=== PATIENT | male | born 1980 | race Caucasian/White ===

== ENCOUNTER 2020-08-07 21:49 | Emergency (ER) | payer MEDICAID, SELFPAY ==
[2020-08-07 21:58] VITALS: BP 155/60; PULSE 106; RESP 16; TEMP 36.7; O2SAT 99
--- NOTE | 2020-08-07 22:27 | ED.GENADUL_ITS ---
Discharge Plan Disposition Patient Disposition: HOME Condition: Improving Discharge Details Clinical Impression: Abscess of arm, right Primary Care Provider: Margi,[facility] ED Provider: Simón Santana Home Meds and New Rx's Prescriptions: New amoxicillin-pot clavulanate 875-125 mg tablet 1 tab PO BID 10 Days Qty: 20 RF: 0 Discharge Instructions Instructions: Abscess (ED) Additional Instructions: Leave current dressing in place until you return for recheck in 24 to 30 hours. Take antibiotics as prescribed. You were seen by a community voice coach in the ER. Return sooner if you develop shaking chills, fever or any other acute concerns Medical Decision Making 40-year-old male who does report use of IV drugs including fentanyl. Feels like he missed the vein 3 days ago and developed right AC fossa swelling, pain and subsequent purulent drainage when he incised at home. Presents had concern for infection. Had no systemic fever or chills and has otherwise been well. States he is ready to attempt weaning off of narcotics. He is afebrile, slightly hypertensive and anxious. He has induration and abscess of the right AC fossa. Patient was consented as to the risks and benefits of the procedure, anesthetized, prepped and draped in standard sterile fashion, and approximately 3 cm incision made vertically over the area of pointing fluctuance. 2 to 3 cc of bloody purulent material was released. Wound culture was sent. Iodoform packing was placed. Patient was placed on Augmentin. He will return in 24 to 30 hours for recheck. He was seen by voice coach prior to discharge HPI General Mode of arrival: ambulatory . Date/Time Provider Initiated Documentation: 08/07/20 21:51 . Limitations to Documentation: no limitations . Information obtained by: patient . History of Present Illness 40 year old M presents to the emergency department with the chief complaint of Right arm abscess, described as moderate, Quality is described as dull and constant, and is localized to the right and upper extremity. Patient started experiencing this day(s) and it has been constant. No exacerbating factors reported . Patient notes denies fever/chills. Patient did receive the following treatments prior to arrival, other (Incised) Related Data Home Medications Medication Instructions Recorded Confirmed amoxicillin-pot clavulanate 1 tab PO BID 10 Days #20 tab 08/07/20 Previous Rx's Medication Instructions Recorded amoxicillin-pot clavulanate 1 tab PO BID 10 Days #20 tab 08/07/20 Allergies Allergy/AdvReac Type Severity Reaction Status Date / Time No Known Allergies Allergy Unverified 08/07/20 22:00 General Stated Complaint: Cellulitis PATRICK: 4 Review of Systems Narrative: 6 systems reviewed and otherwise neg [facility] Social History Smoking/Tobacco Use Status: Current every day Tobacco Type: cigarettes Smoking risk assessment performed?: Yes Alcohol Intake: never Drug use: Daily Substance use type: opiates Do you feel safe at home: No Do you feel safe in your relationship?: No Exam Narrative Exam Narrative: GEN: awake, alert, oriented 3. Pleasant, well groomed, interact divina. HEAD: Normocephalic, atraumatic EYES: PERRL, EOMI NECK: Full ROM, no SHITAL, no menigismus CHEST/RESP: Nontender, clear to auscultation bilateral, no wheeze/rhonchi/rales CARDIOVASCULAR: RRR, no murmur, rub kamila. 2+ Rad pulse bilateral EXT: Full ROM, right AC fossa with induration, swelling, mild overlying erythema and pointing abscess that has been incised with purulent drainage Neuro: Grossly normal neurologic exam, conversant, interactive. Psych: Speech fluent, thoughts congruent, affect normal Course Vital Signs Vital signs: Vital Signs Temperature 36.7 C 08/07/20 21:58 Pulse 106 H 08/07/20 21:58 Respiratory Rate 16 08/07/20 21:58 Blood Pressure 155/60 H 08/07/20 21:58 Pulse Oximetry 99 08/07/20 21:58 Temperature 36.7 C 08/07/20 21:58 Temperature Source Temporal Artery Scan 08/07/20 21:58 Pulse 106 H 08/07/20 21:58 Respiratory Rate 16 08/07/20 21:58 Respiratory Effort 08/07/20 22:01 Blood Pressure 155/60 H 08/07/20 21:58 Blood Pressure Position Sitting 08/07/20 21:58 Pulse Oximetry 99 08/07/20 21:58 Oxygen Delivery Method Room Air 08/07/20 21:58 Oxygen Flow Rate 0 08/07/20 21:58 Pain Level 2 08/07/20 21:58 Procedures Abscess I/D Site: Upper Extremity Side (if applicable): Right Local Anesthetic: Lidocaine 1% Amount of anesthesia used (mL): 2 Technique: Incised with #11 Blade Amount of fluid expressed (mL): 2.5 Packing used?: Iodoform
[2020-08-07] MEDS: Amox. 875/Clav. 125, 2 TABS/BTL 1 TAB PO (22:42)
[2020-08-07] MEDS: Amoxicillin 875/Clav. 125 TAB PO (22:53)
--- NOTE | 2020-08-07 23:11 | NUR.NOTE ---
gymnastics coach has arrived , she is speaking with the pt now Nursing Note:
== END 2020-08-07 23:35 | disposition home or self-care (01) ==
PROVIDERS: Emergency Provider Emergency Medicine
DX: L02.413 Cutaneous abscess of right upper limb (principal); F11.10 Opioid abuse, uncomplicated
CPT/HCPCS: 10061; 87075